=== PATIENT | male | born 1990 ===

== ENCOUNTER 2018-04-14 19:55 | Emergency (ER) | payer OTHER ==
[2018-04-14 20:06] VITALS: BP 132/88; PULSE 89; RESP 20; TEMP 97.8; O2SAT 99
--- NOTE | 2018-04-14 20:49 | C.PDOC ---
History Of Present Illness 27 y/o male comes in complaining of pain to his left knee. Patient states he was walking on a treadmill today and started to feel pain in the outside part of his knee. Patient denies any injury. Time Seen by Provider: 04/14/18 20:08 Chief Complaint (Nursing): Lower Extremity Problem/Injury History Per: Patient History/Exam Limitations: no limitations Onset/Duration Of Symptoms: Hrs Current Symptoms Are (Timing): Still Present Past Medical History Reviewed: Historical Data, Nursing Documentation, Vital Signs Vital Signs: Last Vital Signs Temp 97.8 F 04/14/18 20:03 Pulse 89 04/14/18 20:03 Resp 20 04/14/18 20:03 BP 132/88 04/14/18 20:03 Pulse Ox 99 04/14/18 20:03 Family History: States: No Known Family Hx - Social History Hx Alcohol Use: Yes Hx Substance Use: No Review Of Systems Except As Marked, All Systems Reviewed And Found Negative. Musculoskeletal: Positive for: Other (Knee pain) Physical Exam - Physical Exam Appears: Non-toxic, No Acute Distress Skin: Warm, Dry Head: Atraumatic, Normacephalic Eye(s): bilateral: Normal Inspection Oral Mucosa: Moist Neck: Supple Cardiovascular: Rhythm Regular, No Murmur Respiratory: Normal Breath Sounds, No Rales, No Rhonchi, No Wheezing Extremity: Tenderness (to left lateral knee, no swelling or redness), No Calf Tenderness, Capillary Refill (less than 2 seconds) Extremity: Bilateral: Normal Color And Temperature, Normal ROM Pulses: Left Femoral: Normal Neurological/Psych: Oriented x3, Normal Speech, Normal Motor, Normal Sensation ED Course And Treatment O2 Sat by Pulse Oximetry: 99 (RA) Pulse Ox Interpretation: Normal Medical Decision Making Medical Decision Making: Impression: Knee pain Plan: --Knee XR --Ibuprofen PO XR preliminary read as negative. Ricardo wrap applied. Advised patient to follow up with orthopedic in 2 days for further evaluation and to return to ER if symptoms worsen. Disposition - Disposition Referrals: [facility] at [facility] [Outside] Miguel Okeefe MD [Staff Provider] - Disposition: HOME/ ROUTINE Disposition Time: 21:59 Condition: STABLE Additional Instructions: rest, ice, elevate follow up with orthopaedic within 2 days call to make an appointment take medication as needed for pain return to ER if symptoms worsens or progress Prescriptions: Naproxen [Naprosyn] 500 mg PO BID PRN #16 tab PRN Reason: Pain, Moderate (4-7) Instructions: Knee Pain Forms: General Discharge Instructions, [facility] ([place]), Work Excuse - Clinical Impression Clinical Impression: Knee pain - Scribe Statement The provider has reviewed the documentation as recorded by the Magalyibaye Goode Provider Attestation: All medical record entries made by the Magalyibaye were at my direction and personally dictated by me. I have reviewed the chart and agree that the record accurately reflects my personal performance of the history, physical exam, medical decision making, and the department course for this patient. I have also personally directed, reviewed, and agree with the discharge instructions and disposition.
--- NOTE | 2018-04-15 08:17 | RAD ---
Date of service: 04/14/2018 PROCEDURE: Left Knee Radiographs. HISTORY: Pain. COMPARISON: None. FINDINGS: BONES: Normal. No fracture. JOINTS: Normal. No osteoarthritis. JOINT EFFUSION: None. OTHER FINDINGS: None. IMPRESSION: Normal radiographs of the left knee.
== END 2018-04-14 21:40 | disposition home or self-care (01) ==
LOC: C.ER 19:55
DX: M25.562 Pain in left knee (principal)